=== PATIENT | male | born 2000 | race Caucasian/White ===

== ENCOUNTER 2018-02-18 12:31 | Emergency (ER) | payer OTHER ==
[2018-02-18] MEDS: ADACEL/BOOSTRIX VACCINE (DIPHTH/PERTUSS/ACELL/TETANUS)0.5ML SYR (90715) IM (15:39)
== END 2018-02-18 16:23 | disposition home or self-care (01) ==
LOC: M ED 12:31
DX: S91.102A Unspecified open wound of left great toe without damage to nail, initial encounter (principal); W23.0XXA Caught, crushed, jammed, or pinched between moving objects, initial encounter; Y92.098 Other place in other non-institutional residence as the place of occurrence of the external cause
CPT/HCPCS: 90715

== ENCOUNTER 2018-08-29 08:29 | Emergency (ER) | payer OTHER ==
[~2018-08-29 08:29] MED LIST: BACT800T5 PO
--- NOTE | 2018-08-29 09:10 | REP ---
CT Head without contrast HISTORY: trauma COMPARISON: None There is no intraparenchymal hemorrhage, acute infarct, mass or midline shift. The ventricular system is normal in appearance. There is no extra cerebral collection. There is no fracture. The visualized sinuses are clear. IMPRESSION: There is no intracranial lesion. Electronically Signed by Blas Paul MD 08/29/2018 09:02 A
[2018-08-29 09:30] VITALS: BP 114/67
== END 2018-08-29 09:31 | disposition home or self-care (01) ==
LOC: M ED 08:29
DX: S01.01XA Laceration without foreign body of scalp, initial encounter (principal); S00.03XA Contusion of scalp, initial encounter; W00.9XXA Unspecified fall due to ice and snow, initial encounter; Y92.89 Other specified places as the place of occurrence of the external cause; Y93.9 Activity, unspecified; Y99.1 Military activity

== ENCOUNTER 2018-09-04 18:00 | Emergency (ER) | payer OTHER ==
[~2018-09-04] VITALS: Ht 188 cm; Wt 84.1 kg
[2018-09-04] MEDS ORDERED: METOCLOPRAMIDE 10 MG TAB PO ONE (21:00)
[2018-09-04] MEDS ORDERED: diphenhydrAMINE 25 MG CAP PO ONE (21:00)
[2018-09-04] MEDS ORDERED: KETOROLAC TROMETHAMINE 10 MG TAB PO ONE (21:00)
[2018-09-04] MEDS ORDERED: REGL10TA6 PO (21:20)
[2018-09-04] MEDS ORDERED: KETO10TAB PO (21:20)
[2018-09-04 21:25] VITALS: BP 134/69
== END 2018-09-04 21:27 | disposition home or self-care (01) ==
LOC: M ED 18:00
DX: S06.0X0A Concussion without loss of consciousness, initial encounter (principal); W19.XXXA Unspecified fall, initial encounter; Y92.139 Unspecified place military base as the place of occurrence of the external cause; Y99.1 Military activity; Z48.02 Encounter for removal of sutures; R56.9 Unspecified convulsions